=== PATIENT | male | born 1990 ===

== ENCOUNTER 2020-12-09 10:40 | Day surgery (SDC) | payer OTHER | END 2020-12-09 14:03 | disposition home or self-care (01) | LOC: AMB-ENDOS 10:40 | PROVIDERS: ATTEND Colon & Rectal Surgery | DX: K62.89 Other specified diseases of anus and rectum (principal); K64.1 Second degree hemorrhoids; Z20.822 Contact with and (suspected) exposure to COVID-19 ==